=== PATIENT | female | born 1970 | race Caucasian/White ===

== ENCOUNTER 2021-02-18 20:58 | Emergency (ER) | payer OTHER ==
[~2021-02-18] VITALS: Ht 165.1 cm; Wt 70.3 kg
[2021-02-18] MEDS ORDERED: PAXIL40 MG PO (21:07)
[2021-02-18] MEDS ORDERED: LINZESS72 MCG PO (21:08)
[2021-02-18] MEDS ORDERED: PERCOCET 5-3251 EACH PO (21:08)
[2021-02-18] MEDS ORDERED: ABILIFY10 MG PO (21:08)
[2021-02-18] MEDS ORDERED: PREGABALIN50 MG PO (21:08)
[2021-02-18 22:14] LABS: CALCIUM 8.7 mg/dL (8.5-10.1); POTASSIUM 3.5 mmol/L (3.5-5.1)
[2021-02-18 22:25] LABS: ALBUMIN 3.4 g/dL (3.4-5.0); TOTAL BILIRUBIN 0.1 mg/dL (0.2-1.0); TOTAL PROTEIN 6.4 g/dL (6.4-8.2)
[2021-02-18 23:29] VITALS: BP 115/49
[2021-02-21 17:06] LABS: HEP B SURFACE Ab(ANTI-HBS Reactive (()); HEPATITIS B SURFACE AG Negative (Negative); HEPATITIS C VIRUS AB <0.1 (0.0-0.9)
== END 2021-02-18 23:30 | disposition home or self-care (01) ==
LOC: ER 20:58
PROVIDERS: Nurse Practitioner Family
DX: S61.232A Puncture wound without foreign body of right middle finger without damage to nail, initial encounter (principal); F17.210 Nicotine dependence, cigarettes, uncomplicated; Z79.899 Other long term (current) drug therapy; Z88.0 Allergy status to penicillin; Z88.2 Allergy status to sulfonamides; W46.0XXA Contact with hypodermic needle, initial encounter; Y93.H1 Activity, digging, shoveling and raking; Y92.59 Other trade areas as the place of occurrence of the external cause; Y99.8 Other external cause status